=== PATIENT | male | born 1970 | race Asian ===

== ENCOUNTER 2017-05-04 03:39 | Inpatient (IN) | payer MEDICAID ==
[~2017-05-04] VITALS: Ht 170.2 cm; Wt 106.1 kg
[2017-05-04 03:43] VITALS: Ht 170.2 cm; Wt 106.1 kg
[2017-05-04 05:18] LABS: PLATELET COUNT 196 x10^3mcL (130-400); RED CELL DISTRIBUTION WIDTH 12.7 % (11.5-14.5)
[2017-05-04 05:23] LABS: CALCIUM 8.4 mg/dL (8.5-10.1); CARBON DIOXIDE 22.2 mmol/L (21-32); CREATININE SERUM 1.9 mg/dL (0.7-1.3); POTASSIUM SERUM 4.6 mmol/L (3.5-5.1)
[2017-05-04 05:34] LABS: BILIRUBIN TOTAL 0.23 mg/dL (0.20-1.00); TOTAL PROTEIN, SERUM 6.5 g/dL (6.4-8.2)
[2017-05-04 05:37] LABS: BAND NEUTROPHIL 9 % (0-10); BASOPHIL 0 % (0-2); MONOCYTE 2 % (0-7); SEGMENTED NEUTROPHILS 81 % (37-75)
[2017-05-04 05:38] LABS: PLATELET MORPHOLOGY PLATELETS NORMAL; rbc morphology (normal/abnorm) NORMAL (NORMAL)
[2017-05-04 05:42] LABS: ALBUMIN 3.2 g/dL (3.4-5.0)
[2017-05-04] MEDS ORDERED: HUMALOG MIX 50/10 ML ×2 (06:19→06:20)
[2017-05-04] MEDS ORDERED: HUMALOG MIX 75/10 ML (06:19)
[2017-05-04] MEDS ORDERED: DEPAKOTE ER250 M1 (06:20)
[2017-05-04] MEDS ORDERED: METFORMIN HYD1000 M2 (06:20)
[2017-05-04] MEDS ORDERED: CLOZAPINE100 MG (06:20)
[2017-05-04] MEDS ORDERED: VITAMIN D50000 I4 (06:21)
[2017-05-04] MEDS ORDERED: CHILDREN'S100 MG/52 (06:21)
[2017-05-04] MEDS ORDERED: SIMVASTATIN20 M1 (06:21)
[2017-05-04] MEDS ORDERED: FAMOTIDINE20 M1 (06:21)
[2017-05-04] MEDS ORDERED: COLACE100 MG (06:22)
[2017-05-04 07:56] LABS: T3 TOTAL 0.84 ng/mL
[2017-05-04 07:58] LABS: PHOSPHOROUS 3.7 mg/dL (2.5-4.9)
[2017-05-04 08:00] LABS: CHOLESTEROL/HDL RATIO 3.9
[2017-05-04 08:30] LABS: FREE T4 1.25 ng/dL (0.76-1.46); FREE THYROXINE INDEX 3.3 ug/dL (1.4-4.5); T4(THYROXINE) 7.8 ug/dL (4.7-13.3)
[2017-05-04 08:39] VITALS: BP 141/67
[2017-05-04 10:43] VITALS: BP 141/67
[2017-05-04 12:10] VITALS: BP 127/77
[2017-05-04 17:31] VITALS: BP 142/80
[2017-05-04 21:34] VITALS: BP 166/92
[2017-05-04 21:45] LABS: CARBON DIOXIDE 25.4 mmol/L (21-32); CREATININE SERUM 1.5 mg/dL (0.7-1.3); POTASSIUM SERUM 4.5 mmol/L (3.5-5.1)
[2017-05-04 23:59] LABS: microscopic required? NO
[2017-05-05 00:20] LABS: UA SPECIFIC GRAVITY 1.015 (1.005-1.035); urine erythrocyte NEGATIVE (NEGATIVE)
[2017-05-05 00:33] LABS: AMPHETAMINE QUAL UR NONE DETECTED (NEG <=1000)
[2017-05-05 06:01] VITALS: BP 127/71
[2017-05-05 07:33] LABS: PLATELET COUNT 194 x10^3mcL (130-400); RED CELL DISTRIBUTION WIDTH 12.8 % (11.5-14.5)
[2017-05-05 07:40] LABS: CALCIUM 7.8 mg/dL (8.5-10.1); CARBON DIOXIDE 23.2 mmol/L (21-32); CHLORIDE SERUM 100 mmol/L (98-107); CREATININE SERUM 1.2 mg/dL (0.7-1.3); GFR1 > 60 mL/min; GLUCOSE SERUM 248 mg/dL (74-106); MAGNESIUM 1.7 mg/dL (1.8-2.4); PHOSPHOROUS 2.2 mg/dL (2.5-4.9); POTASSIUM SERUM 3.7 mmol/L (3.5-5.1); SODIUM SERUM 133 mmol/L (136-145)
[2017-05-05 08:53] LABS: BAND NEUTROPHIL 8 % (0-10); BASOPHIL 0 % (0-2); MONOCYTE 6 % (0-7); SEGMENTED NEUTROPHILS 77 % (37-75)
[2017-05-05 08:55] LABS: burr cell (echinocyte) 1+; rbc morphology (normal/abnorm) ABNORMAL (NORMAL)
[2017-05-05 09:17] VITALS: BP 115/61
[2017-05-05 13:10] VITALS: BP 132/78
[2017-05-05 17:10] VITALS: BP 128/68
[2017-05-05 21:32] VITALS: BP 131/82
[2017-05-06 05:11] VITALS: BP 115/68
[2017-05-06 07:06] LABS: BASOPHIL % 0.2 % (0-2); PLATELET COUNT 180 x10^3mcL (130-400); RED CELL DISTRIBUTION WIDTH 13.2 % (11.5-14.5)
[2017-05-06 07:18] LABS: CALCIUM 7.7 mg/dL (8.5-10.1); CARBON DIOXIDE 25.8 mmol/L (21-32); CHLORIDE SERUM 102 mmol/L (98-107); CREATININE SERUM 1.1 mg/dL (0.7-1.3); GFR1 > 60 mL/min; GLUCOSE SERUM 190 mg/dL (74-106); MAGNESIUM 1.9 mg/dL (1.8-2.4); PHOSPHOROUS 2.5 mg/dL (2.5-4.9); POTASSIUM SERUM 3.7 mmol/L (3.5-5.1); SODIUM SERUM 136 mmol/L (136-145)
[2017-05-06 13:24] VITALS: BP 124/71
[2017-05-06 17:26] VITALS: BP 135/84
[2017-05-06 21:56] VITALS: BP 140/50
[2017-05-07 05:59] VITALS: BP 115/65
[2017-05-07 07:19] LABS: BASOPHIL % 0.3 % (0-2); PLATELET COUNT 208 x10^3mcL (130-400)
[2017-05-07 07:21] LABS: CALCIUM 8.2 mg/dL (8.5-10.1); CHLORIDE SERUM 103 mmol/L (98-107); CREATININE SERUM 1.1 mg/dL (0.7-1.3); GFR1 > 60 mL/min; GLUCOSE SERUM 134 mg/dL (74-106); POTASSIUM SERUM 3.9 mmol/L (3.5-5.1); SODIUM SERUM 139 mmol/L (136-145)
[2017-05-07 10:08] VITALS: BP 141/91
[2017-05-07 17:47] VITALS: BP 167/86
[2017-05-07 21:50] VITALS: BP 154/63
[2017-05-08 06:05] VITALS: BP 149/77
[2017-05-08 06:39] LABS: CALCIUM 8.3 mg/dL (8.5-10.1); CARBON DIOXIDE 25.1 mmol/L (21-32); CHLORIDE SERUM 102 mmol/L (98-107); CREATININE SERUM 1.2 mg/dL (0.7-1.3); GFR1 > 60 mL/min; GLUCOSE SERUM 169 mg/dL (74-106); POTASSIUM SERUM 3.6 mmol/L (3.5-5.1); SODIUM SERUM 139 mmol/L (136-145)
[2017-05-08 06:46] LABS: BASOPHIL % 0.3 % (0-2); PLATELET COUNT 262 x10^3mcL (130-400)
[2017-05-08 09:40] VITALS: BP 140/77
[2017-05-08 18:02] VITALS: BP 121/79
[2017-05-08 20:15] VITALS: BP 142/75
[2017-05-08 21:29] VITALS: BP 122/83
[2017-05-09 04:21] VITALS: BP 127/68
[2017-05-09 06:57] LABS: BASOPHIL % 0.4 % (0-2); PLATELET COUNT 262 x10^3mcL (130-400); RED CELL DISTRIBUTION WIDTH 12.9 % (11.5-14.5)
[2017-05-09 09:56] VITALS: BP 137/79
[2017-05-09 13:53] LABS: BASOPHIL % 0.4 % (0-2); PLATELET COUNT 280 x10^3mcL (130-400)
[2017-05-09] MEDS ORDERED: FLA500 PO (14:13)
[2017-05-09] MEDS ORDERED: LEV500 PO (14:13)
[2017-05-09] MEDS ORDERED: METOPROLOL TART25 M1 PO (14:17)
[2017-05-09] MEDS ORDERED: LIPI20 PO (14:17)
[2017-05-09] MEDS ORDERED: ECO81 PO (14:18)
[2017-05-09] MEDS ORDERED: DEP250 PO (14:18)
[2017-05-09] MEDS ORDERED: CLOZ100 PO (14:19)
[2017-05-09] MEDS ORDERED: MIRUD PO (14:20)
[2017-05-09] MEDS ORDERED: METP PO (14:20)
[2017-05-09] MEDS ORDERED: PROTONIX40 MG/Pac1 PO (14:21)
[2017-05-09] MEDS ORDERED: LAC PO (14:22)
[2017-05-09] MEDS ORDERED: HUM7525 SQ (14:37)
[2017-05-09 15:35] VITALS: BP 137/79
[2017-05-09 17:35] VITALS: BP 133/81
== END 2017-05-09 17:43 | disposition home or self-care (01) | DRG 137 ==
LOC: ED 03:39 → IC 05:45 → DU 05:45 → IC 07:06 → DU 07:41 → MU 05-07 03:24
PROVIDERS: Emergency Medicine; Family Medicine; Internal Medicine Gastroenterology; Student in an Organized Health Care Education/Training Program
PROC: 0DBL8ZX Excision of Transverse Colon, Via Natural or Artificial Opening Endoscopic, Diagnostic (ICD-10-PCS; principal; 2017-05-07 12:30)
DX: J69.0 Pneumonitis due to inhalation of food and vomit (principal); N17.0 Acute kidney failure with tubular necrosis; J96.01 Acute respiratory failure with hypoxia; G93.41 Metabolic encephalopathy; K85.90 Acute pancreatitis without necrosis or infection, unspecified; E44.0 Moderate protein-calorie malnutrition; K55.9 Vascular disorder of intestine, unspecified; K21.9 Gastro-esophageal reflux disease without esophagitis; E86.0 Dehydration; E11.65 Type 2 diabetes mellitus with hyperglycemia; F79 Unspecified intellectual disabilities; F20.9 Schizophrenia, unspecified; K64.8 Other hemorrhoids; K80.20 Calculus of gallbladder without cholecystitis without obstruction; D64.9 Anemia, unspecified; E78.5 Hyperlipidemia, unspecified; E66.9 Obesity, unspecified; Z68.36 Body mass index [BMI] 36.0-36.9, adult; Z79.4 Long term (current) use of insulin
CPT/HCPCS: 45380; 83880; 84439; 87046; 87046-59; C9113; G0480; J1200; J1610; J1815; J1940; J1956; J2250; J2310; J2543; J3010; J3490; J7030; J7620; Q0092; Q9967

== ENCOUNTER 2017-05-10 22:17 | Emergency (ER) | payer MEDICAID ==
[~2017-05-10] VITALS: Ht 170.2 cm; Wt 102.0 kg
[~2017-05-10 22:17] MED LIST: CHILDREN'S100 MG/52; CLOZ100 PO; CLOZAPINE100 MG; COLACE100 MG; DEP250 PO; DEPAKOTE ER250 M1; ECO81 PO; FAMOTIDINE20 M1; FLA500 PO; HUM7525 SQ; HUMALOG MIX 50/10 ML; HUMALOG MIX 75/10 ML; LAC PO; LEV500 PO; LIPI20 PO; METFORMIN HYD1000 M2; METOPROLOL TART25 M1 PO; METP PO; MIRUD PO; PROTONIX40 MG/Pac1 PO; SIMVASTATIN20 M1; VITAMIN D50000 I4
[2017-05-10 22:27] VITALS: Ht 170.2 cm; Wt 102.0 kg
[2017-05-10 23:15] LABS: PLATELET COUNT 345 x10^3mcL (130-400); RED CELL DISTRIBUTION WIDTH 13.3 % (11.5-14.5)
[2017-05-10 23:26] LABS: CALCIUM 8.6 mg/dL (8.5-10.1); CARBON DIOXIDE 26.9 mmol/L (21-32); CHLORIDE SERUM 100 mmol/L (98-107); CREATININE SERUM 1.2 mg/dL (0.7-1.3); GFR1 > 60 mL/min; GLUCOSE SERUM 267 mg/dL (74-106); POTASSIUM SERUM 3.8 mmol/L (3.5-5.1); SODIUM SERUM 138 mmol/L (136-145)
[2017-05-10 23:46] LABS: ALBUMIN 2.9 g/dL (3.4-5.0); ALKALINE PHOSPHATASE 66 U/L (46-116); ALT/SGPT 20 U/L (16-63); AST/SGOT 13 U/L (15-37); BILIRUBIN TOTAL 0.1 mg/dL (0.20-1.00); TOTAL PROTEIN, SERUM 6.1 g/dL (6.4-8.2)
[2017-05-11 00:52] LABS: microscopic required? NO
[2017-05-11 01:00] LABS: UA SPECIFIC GRAVITY <=1.005 (1.005-1.035); urine erythrocyte NEGATIVE (NEGATIVE)
[2017-05-11 01:11] LABS: AMPHETAMINE QUAL UR NONE DETECTED (NEG <=1000)
[2017-05-11 01:57] VITALS: BP 152/87
== END 2017-05-11 01:57 | disposition home or self-care (01) ==
LOC: ED 22:17
PROVIDERS: Emergency Medicine
DX: F20.9 Schizophrenia, unspecified (principal); R45.1 Restlessness and agitation; I10 Essential (primary) hypertension; E11.9 Type 2 diabetes mellitus without complications
CPT/HCPCS: 87804; J7030; Q0092